=== PATIENT | female | born 1995 | race Caucasian/White ===

== ENCOUNTER → 2019-09-08 15:34 | Outpatient (CLI) | payer OTHER, SELFPAY ==
[2019-09-08 15:34] VITALS: BMI 32.5
[2019-09-08 17:57] LABS: Free T3 3.9 pg/mL (2.18-3.98); T4 Free Direct 1.69 ng/dL (0.76-1.46); Thyroid Stim Hormone (TSH) < 0.01 uIU/mL (0.358-3.74)
[2019-09-10 11:52] LABS: Thyroid Peroxidase AB 174 IU/mL (0-34)
== END ==
LOC: LAB 15:36
PROVIDERS: Referring Provider Internal Medicine Endocrinology, Diabetes & Metabolism; Visit Provider Internal Medicine Endocrinology, Diabetes & Metabolism
DX: O99.281 Endocrine, nutritional and metabolic diseases complicating pregnancy, first trimester (principal); E05.90 Thyrotoxicosis, unspecified without thyrotoxic crisis or storm; Z3A.00 Weeks of gestation of pregnancy not specified
CPT/HCPCS: 36415; 84439; 84443; 84481; 86376

== ENCOUNTER → 2019-09-29 15:36 | Outpatient (CLI) | payer OTHER, SELFPAY ==
[2019-09-08 15:34] VITALS: BMI 32.5
[2019-09-29 18:10] LABS: Free T3 3.4 pg/mL (2.18-3.98); T4 Free Direct 1.52 ng/dL (0.76-1.46); Thyroid Stim Hormone (TSH) < 0.01 uIU/mL (0.358-3.74)
== END ==
PROVIDERS: Referring Provider Internal Medicine Endocrinology, Diabetes & Metabolism; Visit Provider Internal Medicine Endocrinology, Diabetes & Metabolism
DX: O99.282 Endocrine, nutritional and metabolic diseases complicating pregnancy, second trimester (principal); E05.90 Thyrotoxicosis, unspecified without thyrotoxic crisis or storm; Z3A.00 Weeks of gestation of pregnancy not specified
CPT/HCPCS: 36415; 84439; 84443; 84481

== ENCOUNTER 2019-10-27 15:40 | Outpatient (RCR) | payer OTHER, SELFPAY ==
[2019-10-27 15:19] VITALS: BMI 31.5
[2019-10-27 16:59] LABS: Free T3 2.8 pg/mL (2.18-3.98); T4 Free Direct 1.22 ng/dL (0.76-1.46); Thyroid Stim Hormone (TSH) < 0.01 uIU/mL (0.358-3.74)
== END 2019-10-27 18:00 | disposition home or self-care (01) ==
LOC: LAB 15:40
PROVIDERS: Referring Provider Internal Medicine Endocrinology, Diabetes & Metabolism; Visit Provider Internal Medicine Endocrinology, Diabetes & Metabolism
DX: O99.282 Endocrine, nutritional and metabolic diseases complicating pregnancy, second trimester (principal); E05.90 Thyrotoxicosis, unspecified without thyrotoxic crisis or storm
CPT/HCPCS: 36415; 84439; 84443; 84481

== ENCOUNTER 2019-11-26 15:05 | Outpatient (RCR) | payer OTHER, SELFPAY ==
[2019-10-27 15:59] VITALS: BMI 32.5
[2019-11-26 17:01] LABS: Free T3 2.9 pg/mL (2.18-3.98); T4 Free Direct 1.14 ng/dL (0.76-1.46); Thyroid Stim Hormone (TSH) < 0.01 uIU/mL (0.358-3.74)
== END 2019-11-26 18:00 | disposition home or self-care (01) ==
LOC: LAB 15:05
PROVIDERS: Referring Provider Internal Medicine Endocrinology, Diabetes & Metabolism; Visit Provider Internal Medicine Endocrinology, Diabetes & Metabolism
DX: O99.282 Endocrine, nutritional and metabolic diseases complicating pregnancy, second trimester (principal); E05.90 Thyrotoxicosis, unspecified without thyrotoxic crisis or storm
CPT/HCPCS: 36415; 84439; 84443; 84481

== ENCOUNTER 2020-02-13 05:23 | Inpatient (IN) | payer OTHER, SELFPAY ==
[2019-12-22 15:13] VITALS: BMI 32.5
--- NOTE | 2020-02-04 16:15 | HP.PCM_ITS ---
History and Physical Date of Admission: 02/13/20 Genoveva Colmenares Physician Specialty: REGISTERED REPRESENTATIVE H&P Signed Encounter Date: 02/04/2020 Expand All Collapse All Hide copied text Cecily for details Jackelin Gomez is a 25 year old female who presents for PRE OP visit- scheduled Repeat c/s and Salpingectomy for TWINS at 37.6 weeks. Pt reports no pain, contraction, bleeding or leaking. Reports good FM. Pt report no CP, SOB, dizziness. ? PAST MEDICAL HISTORY PAST MEDICAL HISTORY Diagnosis Date ? ASCUS with positive high risk HPV cervical 10/2016 ? Hyperthyroidism affecting in second trimester 08/18/2019 ? NEGATIVE MEDICAL HISTORY ? PAST SURGICAL HISTORY PAST SURGICAL HISTORY Procedure Laterality Date ? ANESTH, SECTION ? ? ? DELIVERY ONLY ? 05/30/2017 ? NONE ? ? FAMILY HISTORY FAMILY HISTORY Problem Relation Age of Onset ? other (brittle bone disease) Brother ? SOCIAL HISTORY Social History ? Tobacco Use ? Smoking status: Never Smoker ? Smokeless tobacco: Never Used Substance Use Topics ? Alcohol use: No ? Drug use: No CURRENT MEDICATIONS Current Outpatient Medications Medication Sig ? aspirin, enteric coated (ADULT LOW DOSE ASPIRIN) 81 mg EC tablet Take 1 tablet by mouth once daily. ? metHIMazole (TAPAZOLE) 5 mg tablet Take 1 tablet by mouth once daily. ? PNV CMB#21/IRON/FOLIC ACID ( COMPLETE ORAL) Take by mouth. ? No current facility-administered medications for this visit. Allergies As of Date: 02/04/2020 (No Known Allergies) Fully Assessed 02/04/2020 ? REVIEW OF SYSTEMS Abdomen: no pain.. Expanded ROS: GENERAL: Negative for fever Allergies and current medication updated:Yes ? EXAM: BP 120/68 Wt 230 lb (104.3kg) LMP 05/24/2019 GENERAL: pleasant, female in no apparent distress HEENT: Normocephalic and atraumatic NECK: full range of motion DERMATOLOGY: Normal, without lesions, non-icteric and non-hirsute ABDOMEN: soft, non-tender and gravid NEURO: alert and oriented x3,exam grossly non-focal EXTREMITIES: normal ? ASSESSMENT AND PLAN: Encounter Diagnosis ? ? ICD-10-CM ? 1. Dichorionic diamniotic twin in first trimester O30.041 URINE OB DIP B/O 2. Hyperthyroidism affecting in second trimester O99.282 URINE OB DIP B/O ? E05.90 ? 3. 36 weeks gestation of Z3A.36 URINE OB DIP B/O 4. Pt has been counseled on risks/benefits and alternatives of surgery including but not limited to anesthesia, bleeding, infection, injury to pelvic structures including bowel, bladder, ureters and vessels. Pt wishes to proceed with surgery at this time. 5. Pre op instructions reviewed ? ? ? Genoveva Akhtar MD ?4:14 PM Routine Office Visit on 02/04/2020 Essential Procedure Criteria Procedure Essential: Yes Criteria Note: On 12/09/2019 the [facility] ([facility]) Public Order signed by [facility] Director Christine Denson M.D., regarding the Management of Non- Essential Surgeries and Procedures for the purpose of preserving Personal Protective Equipment (PPE) and critical hospital capacity and resources within [place] went into effect as of 12/10/2019 at 5:00PM. According to the [facility] Public Order: This action will remain in full force and effect until the State of Emergency declared by the Governor no longer exists or the Director of the [facility] rescinds or modifies this Order.. This [facility] order stated all non-essential or elective surgeries and procedures that utilize PPE should be delayed unless there is undue risk to the current or future health of a patient. After reviewing the aforementioned [facility] Public Order and the patients clinical case, I have determined that the scheduled procedure meets the criteria to go forward. Risk to Patient if Procedure Delayed: Risk of rapidly worsening to severe symptoms if delayed - twin gestation- term at 37.6 weeks gestation- delivery recommendation
[2020-02-13] VITALS (16 sets, daily range): BP systolic 99–125; BP diastolic 43–81; PULSE 86–109; RESP 12–97; TEMP 36.2–36.7; O2SAT 96–100; BMI 36.5
[2020-02-13] MEDS: Lactated Ringers 1,000 ML 999 ML IV (05:55)
[2020-02-13 06:03] LABS: Absolute Lymphocyte Count 1.65 X10^3/uL (0.83-4.51); Basophil# 0.03 X10^3/uL; Basophil% 0.3 % (0-1); Hematocrit 40.2 % (37-47); Hemoglobin 13.1 g/dL (12.0-15.0); Lymphocyte # 1.65 X10^3/ul (4.0); Lymphocyte % 18.8 % (19-41); Mean Corp Hgb Conc 32.6 g/dL (32-36); Mean Corpuscular Hgb 28.3 pg (27.0-32.0); Mean Corpuscular Volume 86.8 fL (81-99); Mean Platelet Vol. 9.7 fl (6.2-12.0); Monocyte# 0.87 X10^3/uL; Monocyte% 9.9 % (0-10); NRBC Flagged by Analyzer 0 % (0-5); Neutrophil # 6.03 X10^3/uL (2.7-7.7); Neutrophil % 68.8 % (47-70); Platelet Count 208 K/mm3 (150-450); RBC Distribution Width SD 37.7 fl (35.1-43.9); Red Blood Count 4.63 M/mm3 (4.2-5.4); White Blood Count 8.8 K/mm3 (4.4-11.0)
[2020-02-13] MEDS: Lactated Ringers 1,000 ML 150 ML IV (06:57)
[2020-02-13] MEDS: Sodium Citrate/Citric Acid 30 ML UDC PO (07:02)
--- NOTE | 2020-02-13 07:08 | PCM.OPRPT ---
Delivery Classification: Scheduled Final MAVERICK: 02/28/20 Final MAVERICK Source: US <20 weeks Gestational age: 37 Weeks and 6 Days business system consultant: Mihir Alfaro Type of Anesthesia:: Spinal Implants Used: none Date of Procedure: 02/13/20 Pre-Operative Diagnosis: Di/Di twin gestation, desires sterilization Post-Operative Diagnosis: same, live female infants Indications for : Repeat Elective , Desires elective sterilization, Multiple Gestation Description of Procedure: After informed consent was obtained the patient was taken to the operating room she was given spinal anesthesia. He was placed in the supine position. She was then prepped and draped in normal sterile fashion. Once spinal anesthesia was found to be adequate skin incision was made with a scalpel in a Pfannenstiel fashion. It was carried down to the underlying layer of the fascia. Fascia was then incised midline with scapel and extended laterally using curved stallings. 2 straight Geneva's were placed in the superior aspect of the fascial edge and the rectus muscles were dissected off shaprly. Attention was then turned to the inferior aspect where again the fascial edge was grasped with 2 straight Cisco clamps tented up and the rectus muscle dissected off sharply. At this time the rectus muscles were grasped in the midline using 2 Allis clamps and scalpel was used to separate the rectus muscles. Using blunt force the peritoneum was then entered. Metzenbaums were used to take down the rectus muscles inferiorly as well as the peritoneum. At this time the vesicouterine peritoneum was identified. Metzenbaum scissors were used to create a bladder flap and then taken down digitally. Uterine incision was made in a low transverse fashion with the scalpel and then entered bluntly. Gentle opposing traction was placed to extend the uterine incision. The membranes were ruptured amniotic fluid clear. Twin A- 's head was then brought to the uterine incision was delivered atraumatically followed by the rest infant's body. At this time delayed cord clamping was performed mouth nose were suctioned. Infant was then handed to the waiting nursery team. Twin B- unable to feel presenting part- interval version attempted to deliver breech- Membranes inadvertently ruptured, clear- was delivered in breech position buttocks brought to uterine incision and delivered atraumatically. The placentas were then removed with gentle traction. The uterus was removed from the intra-abdominal cavity is wrapped in a moist lap. He was cleared of all clots and debris using a moist lap. Ring clamps were placed on the uterine angles. #1 Vicryl suture was used in a running locked fashion for the first layer. Followed by second imbricating layer with #1 Vicryl. At this time then the uterus was placed back into abdominal cavity uterine incision was evaluated and noted to be of good hemostasis. Tubes and ovaries were evaluated they were normal. The tubes were grasped in an avascular area with the Ligasure used to seal and ligate along mesoalpinx on bilaterally to remove fallopian tubes. Great hemostasis was appreciated at this time the uterine incision was again evaluated good hemostasis was appreciated. The peritoneum was grasped with Kellys. Peritoneum was reapproximated using #2 Vicryl suture in a running fashion. Davonte placed over rectus. The fascia was then reapproximated using #1 Vicryl in a running fashion. Subcutaneous layer was evaluated and Bovie was used for any small oozing that was noted per #2-0 plain gut suture was then used to reapproximate the subcutaneous layer, davonte placed. 4-0 monocryl used to reapproximate the skin in a subcutaneous fashion. Dry sterile dressing was applied. Instrument lap needle count were correct ?2. Anticipated normal postoperative course for this patient. Amniotic Membrane Rupture Type: Artificial Amniotic Fluid Description: Clear Placenta Disposition: [facility] Drain: Zamorano to straight drain Fluids Replaced: 1000 Cord Entanglement: None Cord Vessel Description: 3 Vessels Esitmated Blood Loss (ml): 900 Gender: Female (1 minute): 9 - twin B 7, 9 (5 minute): 9 Delayed cord clamping: Yes Antibiotic Given: Ancef 2 grams IV x1 Pt instructed on risks of surgery: Bleeding, Anesthesia Risks, Infection, Permanency, Failure Rate of 1 to 2%, Injury to surrounding structure(s) including bowel and bladder, Availability of other non-permanent control options - Admit VTE Documentation VTE Present on Admission: Yes VTE Mechan Device Prophylaxis: SCD's VTE Pharm Prophylaxis ordered?: Yes
[2020-02-13] MEDS: Cefazolin 2 GM in 0.9% Normal Saline 100 ML IV (07:16)
--- NOTE | 2020-02-13 07:44 | PLAC_PTH ---
PATIENT: GENNY PARRA LOC: [facility] U#:[id number] AGE/SX: 25/F ROOM: [facility] RE02/13/[address]: Dr. Genoveva Akhtar, MDDOB: 1995 BED: 1 DIS: 02/15/2020 SPEC #: [id number] RECD: 02/13/20 09:36 STATUS: JORDYN ZACARIAS #: [id number] KRAIG: 02/13/20 07:[address]: Genoveva Akhtar DEPT: SURGICAL PATHOLOGY RECD BY: Savita Duff ENTERED: 02/13/20 10:11 SP TYPE: PLACENTA OTHR DR: Dr. Louis Griffin MD Tissues: A - Placenta, NOS B - Fallopian tube Procedures: Surgery Specimen Level II Surgery Specimen Level V HEADER OPERATION: Repeat section; tubal ligation PRE-OP DIAGNOSIS: Twins; sterilization TISSUE SUBMITTED: A - Placenta, B - Fallopian tubes, suture in left tube MICROSCOPIC DIAGNOSIS A. Dichorionic diamniotic twin placenta: 1 - Placenta (499 gm): Umbilical cord - trivascular with no inflammation. Peripheral membranes - no pathologic change. Placental disc - Jeanie-Boogie change and focal intervillous congestion. 2 - Placenta (518 gm): Umbilical cord - trivascular with no inflammation. Peripheral membranes - no pathologic change. Placental disc - Mild Jeanie-Boogie change, intervillous congestion and mildly increased intraparenchymal calcifications. B. Right and left fallopian tubes, bilateral salpingectomies: Complete segments of fallopian tube with no pathologic change. AM:jordy 02/17/20 MICROSCOPIC DESCRIPTION Slides are reviewed. GROSS DESCRIPTION A - SPECIMEN: TWIN PLACENTA / CLINICAL INFORMATION: A. Weight: A - 2.88 kg; B - 2.825 kg B. Gestational Age: 37 weeks C. Sex: A - Female, B - Female PLACENTA A1: (with clamp) PLACENTAL WEIGHT (POST FIXATION): 499 gm PLACENTAL DIMENSIONS: 19 x 17 x 2 cm PLACENTAL SHAPE: Usual ovoid PLACENTAL WEIGHT FOR GESTATIONAL AGE: Within 10-99th percentile MEMBRANES - Present A. Insertion: Marginal B. Site of rupture from edge: At edge of placental disc C. Color of membrane: Mccann-singh D. Abnormalities: None UMBILICAL CORD - Present A. Color: Mccann-singh B. Insertion: Eccentric C. Length: 20 cm D. Diameter: 1 cm E. Number of vessels: Three F. Abnormalities: None PLACENTA A2: PLACENTAL WEIGHT (POST FIXATION): 518 gm PLACENTAL DIMENSIONS: 20 x 17 x 3 cm PLACENTAL SHAPE: Usual ovoid PLACENTAL WEIGHT FOR GESTATIONAL AGE: Within 10-99th percentile MEMBRANES - Present A. Insertion: Marginal B. Site of rupture from edge: At edge of placental disc C. Color of membrane: Mccann-singh D. Abnormalities: None UMBILICAL CORD - Present A. Color: Mccann-singh B. Insertion: Eccentric C. Length: 20 cm D. Diameter: 1 cm E. Number of vessels: Three F. Abnormalities: None PLACENTAL DISC - Present A. Color of surface: Mccann-singh B. surface abnormalities: None C. Maternal cotyledons: Intact with minimal tears D. Attached retro placental clot: No clot E. Cut surface: Dark red and spongy F. Lesions: None G. Separate clot: Absent SECTIONS SUBMITTED: 11 cassettes 1 - Dividing membrane 2 - Peripheral membranes #1 3 - Umbical cord #1 4-6 - Placental disc #1 7 - Peripheral membranes #2 8 - Umbical cord #2 9-11 - Placental disc #2 B - Received in fixative is one container labeled with the patient's name and designated bilateral fallopian tubes, left with suture. The specimen consists of two fallopian tubes with an average length of 7 cm and has an average diameter of 1 cm. Both fallopian tubes have normal fimbriated ends. No mass lesions are identified. Casting Sorter sections are submitted in two cassettes as follows: 1 - right fallopian tube, 2 - left fallopian tube. / AM:jordy 02/13/20 TC:5 CPT: 63164 x2, 66863 x2
[2020-02-13] MEDS: Oxytocin 30 units/NS 500 ml 30 UNITS/500 ML IV.SOLN 167 UNITS IV (08:35)
[2020-02-13 09:39] LABS: Pathology Specimen OB SEE PATHOLOGY REPORT
[2020-02-13] MEDS: Ondansetron 4 MG/2 ML Vial IV (10:07)
[2020-02-13] MEDS: proCHLORPERazine 10 MG/2 ML Vial IV (11:30)
[2020-02-13] MEDS: Lactated Ringers 1,000 ML 100 ML IV (11:44)
[2020-02-13] MEDS: Ketorolac 30 MG/ML Syringe IV ×2 (14:31→19:52)
[2020-02-13] MEDS: Methimazole 5 MG Tablet 7.5 MG PO ×2 (19:51→19:52)
--- NOTE | 2020-02-13 21:30 | NURSING ---
Charted for AMADEO Prince. Report given that pt was assisted out of bed at 1645 per K AMADEO Mckoy
[2020-02-14 00:13] VITALS: BP 125/80; PULSE 93; RESP 18; TEMP 36.6; O2SAT 97
[2020-02-14] MEDS: Ketorolac 30 MG/ML Syringe IV ×4 (02:15→20:10)
[2020-02-14] MEDS: 0.9% Saline Lock 10 ML Syringe IV ×4 (02:16→20:10)
[2020-02-14] MEDS: Enoxaparin 40 MG/0.4 ML Syringe SC ×2 (02:49→20:10)
[2020-02-14 04:00] VITALS: BP 102/58; PULSE 76; RESP 18; TEMP 36.4; O2SAT 100
[2020-02-14 05:43] LABS: Hematocrit 35.7 % (37-47); Hemoglobin 11.3 g/dL (12.0-15.0); Mean Corp Hgb Conc 31.7 g/dL (32-36); Mean Corpuscular Hgb 27.8 pg (27.0-32.0); Mean Corpuscular Volume 87.7 fL (81-99); Mean Platelet Vol. 9.4 fl (6.2-12.0); Platelet Count 192 K/mm3 (150-450); Red Blood Count 4.07 M/mm3 (4.2-5.4); White Blood Count 12.7 K/mm3 (4.4-11.0)
[2020-02-14 08:38] VITALS: BP 108/70; PULSE 88; RESP 16; TEMP 36.8; O2SAT 98
--- NOTE | 2020-02-14 08:50 | PN.OBGYN_ITS ---
Subjective: Pain well controlled. Average lochia. No nausea vomiting. Ambulating and urinating without difficulty. - Physical Exam Vitals/I&O's: Vital Signs Temp Pulse Resp BP Pulse Ox 98.2 F 88 16 108/70 98 02/14/20 08:38 02/14/20 08:38 02/14/20 08:38 02/14/20 08:38 02/14/20 08:38 Oxygen Delivery Method Room Air Weight: 105.744 kg Body Mass Index (BMI) 36.5 Intake and Output for Last 24 Hours 02/12/20 02/13/20 02/14/20 23:59 23:59 23:59 Intake Total 5284.17 / 5284.17 Output Total 1350 / 1350 1000 / 1000 Balance 3934.17 / 3934.17 -1000 / -1000 General: Alert, Cooperative, No apparent distress Abdomen: Soft, Distended - Moderately, Tender - Appropriately, - - fundus is firm at approximately the umbilicus Extremities: Edema - 2+ Microbiology Past 72 Hours 02/13/20 05:45 Mucosa - Nasopharyngeal Coronavirus COVID-19 PCR - Final Laboratory Results 02/14/20 05:30: WBC 12.7 H, RBC 4.07 L, Hgb 11.3 L, Hct 35.7 L, MCV 87.7, MCH 27.8, MCHC 31.7 L, RDW Std Deviation 38.0, RDW Coeff of Hyun 12.0, Plt Count 192, MPV 9.4 Current Medications Acetaminophen (Tylenol) 1,000 mg PO Q8H PRN PRN Reason: Pain Score 1-3/10 Bisacodyl (Dulcolax) 10 mg RECTAL UD PRN PRN Reason: If no BM Diphenhydramine HCl (Benadryl) 25 mg PO Q6H PRN PRN PRN Reason: ITCHING Stop: 02/14/20 11:33 Enoxaparin Sodium (Lovenox) 40 mg SC DAILY@1900 [facility] Last Admin: 02/14/20 02:49 Dose: 40 mg Documented by: Hydrocortisone (Hytone) 1 applic TOPICAL TID PRN PRN; Protocol PRN Reason: Discomfort Lactated Ringer's () 1,000 mls @ 100 mls/hr IV .Q10H [facility] Last Admin: 02/13/20 22:26 Dose: Not Given Documented by: Naloxone HCl 4 mg/ Dextrose 504 mls @ 0 mls/hr IV .Q0M PRN; Protocol PRN Reason: Respiratory depression Ibuprofen (Motrin) 600 mg PO Q6H PRN PRN PRN Reason: Pain Score 1-3/10 Ketorolac Tromethamine (Toradol (Bkc)) 30 mg IV Q6H [facility] Stop: 02/15/20 08:01 Last Admin: 02/14/20 08:32 Dose: 30 mg Documented by: Methimazole (Tapazole) 5 mg PO SuTuWeThSa@1999 DONG Methimazole (Tapazole) 7.5 mg PO MoFr@1999 [facility] Last Admin: 02/13/20 19:52 Dose: 7.5 mg Documented by: Methylergonovine Maleate (Methergine) 0.2 mg IM X1 PRN PRN Reason: Uterine Atony Nalbuphine HCl (Nubain) 5 mg IV Q3H PRN PRN PRN Reason: ITCHING Stop: 02/14/20 11:33 Naloxone HCl (Narcan) 0.02 mg IV Q1M PRN PRN Reason: RR <10 and pt unresponsive Ondansetron HCl (Zofran) 4 mg IV Q4H PRN PRN PRN Reason: Nausea Last Admin: 02/13/20 10:07 Dose: 4 mg Documented by: Oxycodone HCl (Oxyir) 5 - 10 mg PO Q4H PRN PRN PRN Reason: Pain Score 4-10/10 Prochlorperazine Edisylate (Compazine Iv) 10 mg IV Q6H PRN PRN PRN Reason: NAUSEA Last Admin: 02/13/20 11:30 Dose: 10 mg Documented by: Senna/Docusate Sodium (Senokot-S, Yesi-Colace) 0 tablet PO DAILY PRN PRN Reason: Constipation Simethicone (Mylicon) 80 mg PO PCHS PRN PRN Reason: Indigestion/stomach pain Sodium Chloride () 5 - 15 ml IV UD PRN PRN Reason: SALINE FLUSH Last Admin: 02/14/20 08:32 Dose: 10 ml Documented by: Medical Necessity - Tobacco Use Smoking Status: Never smoker Assessment/Plan All Active Problems (Last Reviewed 02/03/20 @ 15:[address] Stanislaw Nunes MD) Hyperthyroidism affecting in first trimester (Acute) Postoperative day #1 As per section for twins. Patient is doing well. Neonates are breast-feeding and doing well routine care likely d/c home tomorrow if ok w/ peds.
[2020-02-14 13:18] VITALS: BP 108/66; PULSE 93; RESP 16; TEMP 36.8; O2SAT 96
[2020-02-14] MEDS: Acetaminophen 500 MG Tablet 1000 MG PO (17:56)
[2020-02-14] MEDS: Senna/Docusate Sodium 1 Tablet PO (17:57)
[2020-02-14 20:05] VITALS: BP 103/64; PULSE 81; RESP 16; TEMP 36.4
[2020-02-14] MEDS: Methimazole 5 MG Tablet PO (20:15)
[2020-02-15 01:58] VITALS: BP 110/73; PULSE 78; RESP 14; TEMP 36.5
[2020-02-15] MEDS: 0.9% Saline Lock 10 ML Syringe IV ×2 (01:59→07:57)
[2020-02-15] MEDS: Ketorolac 30 MG/ML Syringe IV ×2 (01:59→07:57)
[2020-02-15 08:06] VITALS: BP 113/66; PULSE 79; RESP 16; TEMP 36.7; O2SAT 97
--- NOTE | 2020-02-15 08:10 | PN.OBGYN_ITS ---
Subjective: Pain is well controlled. Average lochia. Ambulating and tolerating regular diet. Patient has had a bowel movement. Urinating without difficulty. Would like to go home today. Trouble with the breast-feeding. - Physical Exam Vitals/I&O's: Vital Signs Temp Pulse Resp BP Pulse Ox 98.1 F 79 16 113/66 97 02/15/20 08:06 02/15/20 08:06 02/15/20 08:06 02/15/20 08:06 02/15/20 08:06 Oxygen Delivery Method Room Air Weight: 105.744 kg Body Mass Index (BMI) 36.5 Intake and Output for Last 24 Hours 02/13/20 02/14/20 02/15/20 23:59 23:59 23:59 Intake Total 5284.17 / 5284.17 Output Total 1350 / 1350 1000 / 1000 Balance 3934.17 / 3934.17 -1000 / -1000 General: Alert, Cooperative, No apparent distress Abdomen: Soft, Distended - Currently, softly, - - Fundus is firm, below umbilicus Extremities: Edema - 2+ Skin: Incision - Bandages clean dry and intact Microbiology Past 72 Hours 02/13/20 05:45 Mucosa - Nasopharyngeal Coronavirus COVID-19 PCR - Final Current Medications Acetaminophen (Tylenol) 1,000 mg PO Q8H PRN PRN Reason: Pain Score 1-3/10 Last Admin: 02/14/20 17:56 Dose: 1,000 mg Documented by: Bisacodyl (Dulcolax) 10 mg RECTAL UD PRN PRN Reason: If no BM Enoxaparin Sodium (Lovenox) 40 mg SC DAILY@190 [facility] Last Admin: 02/14/20 20:10 Dose: 40 mg Documented by: Hydrocortisone (Hytone) 1 applic TOPICAL TID PRN PRN; Protocol PRN Reason: Discomfort Naloxone HCl 4 mg/ Dextrose 504 mls @ 0 mls/hr IV .Q0M PRN; Protocol PRN Reason: Respiratory depression Ibuprofen (Motrin) 600 mg PO Q6H PRN PRN PRN Reason: Pain Score 1-3/10 Methimazole (Tapazole) 5 mg PO SuTuWeThSa@2000 [facility] Last Admin: 02/14/20 20:15 Dose: 5 mg Documented by: Methimazole (Tapazole) 7.5 mg PO MoFr@2000 [facility] Last Admin: 02/13/20 19:52 Dose: 7.5 mg Documented by: Methylergonovine Maleate (Methergine) 0.2 mg IM X1 PRN PRN Reason: Uterine Atony Naloxone HCl (Narcan) 0.02 mg IV Q1M PRN PRN Reason: RR <10 and pt unresponsive Ondansetron HCl (Zofran) 4 mg IV Q4H PRN PRN PRN Reason: Nausea Last Admin: 02/13/20 10:07 Dose: 4 mg Documented by: Oxycodone HCl (Oxyir) 5 - 10 mg PO Q4H PRN PRN PRN Reason: Pain Score 4-10/10 Prochlorperazine Edisylate (Compazine Iv) 10 mg IV Q6H PRN PRN PRN Reason: NAUSEA Last Admin: 02/13/20 11:30 Dose: 10 mg Documented by: Senna/Docusate Sodium (Senokot-S, Yesi-Colace) 0 tablet PO DAILY PRN PRN Reason: Constipation Last Admin: 02/14/20 17:57 Dose: 1 tablet Documented by: Simethicone (Mylicon) 80 mg PO PCHS PRN PRN Reason: Indigestion/stomach pain Sodium Chloride () 5 - 15 ml IV UD PRN PRN Reason: SALINE FLUSH Last Admin: 02/15/20 07:57 Dose: 10 ml Documented by: Medical Necessity - Tobacco Use Smoking Status: Never smoker Assessment/Plan All Active Problems (Last Reviewed 10/27/19 @ 15:[address] Stanislaw Nunes MD) Hyperthyroidism affecting in first trimester (Acute) From day #2 status post section Being well. Discharged home with routine instructions. Neonates are doing well and breast-feeding.
--- NOTE | 2020-02-15 08:14 | DCINST_ITS ---
Discharge Diet: No Restrictions Discharge Activity: Return to Normal Activity, May not drive while taking narcotic pain medications., May Shower May resume sexual activity in: 4-6 weeks Additional Activity Instructions:: Nothing in the vagina for 4-6 weeks. You may return to work/school in 6 weeks. Call your doctor if your incision/area has: Continuous Slow Oozing, Sudden Increased Bleeding, Increased Pain/ Swelling, Increased Redness, Foul Smelling Discharge Additional Instructions: If you experience any of the following, contact your healthcare provider. * Bleeding that soaks a pad every hour for 2 hours * Fever 100.4 or higher * Unrelieved incision or abdominal pain * Swelling, redness, discharge or bleeding from your incision or episiotomy site * Your incision begins to separate * Problems urinating (including inability to urinate or burning while urinating). * Visual changes * Severe headache * Flu-like symptoms * Pain or redness in one of both of your breasts * Pain, warmth, tenderness or swelling in your legs, especially the calf area * Frequent nausea and vomiting * Symptoms of depression or anxiety If you experience any of the following, call 911 or go to the nearest Emergency Room. * Chest pain * Problems breathing * Seizure activity * Partial or complete paralysis of a body part, slurred speech, weakness or drooping of the face, or a sudden inability to walk or hold your balance Allergies/Adverse Reactions: Allergies No Known Allergies Allergy (Verified 02/13/20 05:30) Medications to take at Discharge aspirin 81 mg tablet,delayed release 81 mg PO DAILY 08/14/19 docosahexaenoic acid 200 mg capsule 200 mg PO DAILY cap 08/14/19 Methimazole See Rx Instructions PO DAILY 02/13/20 Ibuprofen [Motrin] 600 mg PO Q6H PRN #60 tab 02/15/20 Oxycodone [Oxyir] 5 mg PO Q6H PRN PRN 7 Days #12 tablet 02/15/20 The following prescriptions were given: Ibuprofen [Motrin] 600 mg PO Q6H PRN #60 tab PRN Reason: Pain Transmission Status: Pending to [address] Oxycodone [Oxyir] 5 mg PO Q6H PRN PRN 7 Days #12 tablet PRN Reason: severe pain Transmission Status: Received by [address] Please Follow Up With: France Galo MD - [phone] When: Call to make an appointment with your doctor's office in 1-2 and 6 weeks or as needed Primary Care Physician: Louis Griffin MD [Primary Care Provider] - Test Results: Test results from this visit will be discussed in further detail at your follow- up appointment, if applicable.
--- NOTE | 2020-02-15 08:16 | DS.PCM_ITS ---
Discharge Date and Diagnosis Date of Admission: 02/13/20 Date of Discharge: 02/15/20 Hospital Course and Treatment Operations: - - repeat lTCS with bilateral salpingectomy Procedures: None Summary of Care Provided: The patient is a 25-year-old multigravida female admitted for repeat section. She had dichorionic diamniotic twins. She also desired sterilization. She underwent a repeat low transverse section with bilateral salpingectomy on 02/13/2020 without difficulty. By postoperative day #2 she was ambulating, urinating tolerating regular diet without difficulty. She was discharged home with routine instructions and prescriptions. [] - Physical Exam Vitals/I&O's: Vital Signs Temp Pulse Resp BP Pulse Ox 98.1 F 79 16 113/66 97 02/15/20 08:06 02/15/20 08:06 02/15/20 08:06 02/15/20 08:06 02/15/20 08:06 Oxygen Delivery Method Room Air Weight: 105.744 kg Body Mass Index (BMI) 36.5 Intake and Output for Last 24 Hours 02/13/20 02/14/20 02/15/20 23:59 23:59 23:59 Intake Total 5284.17 / 5284.17 Output Total 1350 / 1350 1000 / 1000 Balance 3934.17 / 3934.17 -1000 / -1000 Microbiology Past 72 Hours 02/13/20 05:45 Mucosa - Nasopharyngeal Coronavirus COVID-19 PCR - Final Current Medications Acetaminophen (Tylenol) 1,000 mg PO Q8H PRN PRN Reason: Pain Score 1-3/10 Last Admin: 02/14/20 17:56 Dose: 1,000 mg Documented by: Bisacodyl (Dulcolax) 10 mg RECTAL UD PRN PRN Reason: If no BM Enoxaparin Sodium (Lovenox) 40 mg SC DAILY@1900 [facility] Last Admin: 02/14/20 20:10 Dose: 40 mg Documented by: Hydrocortisone (Hytone) 1 applic TOPICAL TID PRN PRN; Protocol PRN Reason: Discomfort Naloxone HCl 4 mg/ Dextrose 504 mls @ 0 mls/hr IV .Q0M PRN; Protocol PRN Reason: Respiratory depression Ibuprofen (Motrin) 600 mg PO Q6H PRN PRN PRN Reason: Pain Score 1-3/10 Methimazole (Tapazole) 5 mg PO SuTuWeThSa@1999 [facility] Last Admin: 02/14/20 20:15 Dose: 5 mg Documented by: Methimazole (Tapazole) 7.5 mg PO MoFr@1999 [facility] Last Admin: 02/13/20 19:52 Dose: 7.5 mg Documented by: Methylergonovine Maleate (Methergine) 0.2 mg IM X1 PRN PRN Reason: Uterine Atony Naloxone HCl (Narcan) 0.02 mg IV Q1M PRN PRN Reason: RR <10 and pt unresponsive Ondansetron HCl (Zofran) 4 mg IV Q4H PRN PRN PRN Reason: Nausea Last Admin: 02/13/20 10:07 Dose: 4 mg Documented by: Oxycodone HCl (Oxyir) 5 - 10 mg PO Q4H PRN PRN PRN Reason: Pain Score 4-10/10 Prochlorperazine Edisylate (Compazine Iv) 10 mg IV Q6H PRN PRN PRN Reason: NAUSEA Last Admin: 02/13/20 11:30 Dose: 10 mg Documented by: Senna/Docusate Sodium (Senokot-S, Yesi-Colace) 0 tablet PO DAILY PRN PRN Reason: Constipation Last Admin: 02/14/20 17:57 Dose: 1 tablet Documented by: Simethicone (Mylicon) 80 mg PO PCHS PRN PRN Reason: Indigestion/stomach pain Sodium Chloride () 5 - 15 ml IV UD PRN PRN Reason: SALINE FLUSH Last Admin: 02/15/20 07:57 Dose: 10 ml Documented by: Discharge Diet: No Restrictions Discharge Activity: Return to Normal Activity, May not drive while taking narcotic pain medications., May Shower May resume sexual activity in: 4-6 weeks Additional Activity Instructions:: Nothing in the vagina for 4-6 weeks. You may return to work/school in 6 weeks. Call your doctor if your incision/area has: Continuous Slow Oozing, Sudden Increased Bleeding, Increased Pain/ Swelling, Increased Redness, Foul Smelling Discharge Home Medications: Medications to take at Discharge aspirin 81 mg tablet,delayed release 81 mg PO DAILY 08/14/19 docosahexaenoic acid 200 mg capsule 200 mg PO DAILY cap 08/14/19 Methimazole See Rx Instructions PO DAILY 02/13/20 Ibuprofen [Motrin] 600 mg PO Q6H PRN #60 tab 02/15/20 Oxycodone [Oxyir] 5 mg PO Q6H PRN PRN 7 Days #12 tablet 02/15/20 Following Prescrptions Were Given to Patient: Ibuprofen [Motrin] 600 mg PO Q6H PRN #60 tab PRN Reason: Pain Transmission Status: Pending to [facility] [address] Oxycodone [Oxyir] 5 mg PO Q6H PRN PRN 7 Days #12 tablet PRN Reason: severe pain Transmission Status: Received by [facility] [address] Primary Care Physician: Louis Griffin MD [Primary Care Provider] - Please Follow Up With: France Galo MD - [phone] Medical Necessity - Tobacco Use Smoking Status: Never smoker Meaningful Use Info Meaningful Use Diagnoses (Choose all that apply): None applicable
[2020-02-18 12:35] LABS: Pathology Specimen OB SEE PATHOLOGY REPORT
== END 2020-02-15 10:00 | disposition home or self-care (01) | DRG 785 ==
PROVIDERS: Admitting Provider Obstetrics & Gynecology; Visit Provider Obstetrics & Gynecology
PROC: 10D00Z1 Extraction of Products of Conception, Low, Open Approach (ICD-10-PCS; CPT 59514; principal; 2020-02-13 07:15)
DX: O34.211 Maternal care for low transverse scar from previous cesarean delivery (principal); O30.043 Twin pregnancy, dichorionic/diamniotic, third trimester; Z3A.37 37 weeks gestation of pregnancy; Z37.2 Twins, both liveborn; Z30.2 Encounter for sterilization; O99.284 Endocrine, nutritional and metabolic diseases complicating childbirth; E05.90 Thyrotoxicosis, unspecified without thyrotoxic crisis or storm; O32.1XX2 Maternal care for breech presentation, fetus 2
CPT/HCPCS: 85025; 85027; 86850; 86900; 86901; 87635; 88302; 88307; 99218; G2023; J7120; A4216; G0378; J2405; U0004

== ENCOUNTER → 2020-08-27 15:56 | Outpatient (CLI) | payer OTHER, SELFPAY ==
[2020-08-27 15:34] VITALS: BMI 25.8
[2020-08-27 17:10] LABS: Thyroid Stim Hormone (TSH) < 0.01 uIU/mL (0.358-3.74)
[2020-08-27 17:19] LABS: T4 Free Direct > 8.00 ng/dL (0.76-1.46)
== END ==
PROVIDERS: Referring Provider Internal Medicine Endocrinology, Diabetes & Metabolism; Visit Provider Internal Medicine Endocrinology, Diabetes & Metabolism
DX: E05.00 Thyrotoxicosis with diffuse goiter without thyrotoxic crisis or storm (principal)
CPT/HCPCS: 36415; 84439; 84443

== ENCOUNTER → 2020-10-05 15:20 | Outpatient (CLI) | payer OTHER, SELFPAY ==
[2020-08-27 15:34] VITALS: BMI 25.8
[2020-10-05 17:20] LABS: Free T3 9.1 pg/mL (2.18-3.98)
[2020-10-05 17:25] LABS: T4 Free Direct 2.27 ng/dL (0.76-1.46); Thyroid Stim Hormone (TSH) < 0.01 uIU/mL (0.358-3.74)
== END ==
LOC: BIMLAB 15:22
PROVIDERS: Referring Provider Internal Medicine Endocrinology, Diabetes & Metabolism; Visit Provider Internal Medicine Endocrinology, Diabetes & Metabolism
DX: E05.00 Thyrotoxicosis with diffuse goiter without thyrotoxic crisis or storm (principal)
CPT/HCPCS: 36415; 84439; 84443; 84481

== ENCOUNTER → 2020-11-05 14:57 | Outpatient (CLI) | payer OTHER, SELFPAY ==
[2020-08-27 15:34] VITALS: BMI 25.8
[2020-11-05 18:02] LABS: Free T3 6.1 pg/mL (2.18-3.98); Thyroid Stim Hormone (TSH) < 0.01 uIU/mL (0.358-3.74)
== END ==
LOC: BIMLAB 14:59
PROVIDERS: Referring Provider Internal Medicine Endocrinology, Diabetes & Metabolism; Visit Provider Internal Medicine Endocrinology, Diabetes & Metabolism
DX: E05.00 Thyrotoxicosis with diffuse goiter without thyrotoxic crisis or storm (principal)
CPT/HCPCS: 36415; 84439; 84443; 84481

== ENCOUNTER → 2020-12-27 15:36 | Outpatient (CLI) | payer OTHER, SELFPAY ==
[2020-12-27 15:15] VITALS: BMI 27.7
[2020-12-27 17:17] LABS: Free T3 6.2 pg/mL (2.18-3.98); Thyroid Stim Hormone (TSH) < 0.01 uIU/mL (0.358-3.74)
== END ==
LOC: BIMLAB 15:37
PROVIDERS: Referring Provider Internal Medicine Endocrinology, Diabetes & Metabolism; Visit Provider Internal Medicine Endocrinology, Diabetes & Metabolism
DX: E05.00 Thyrotoxicosis with diffuse goiter without thyrotoxic crisis or storm (principal)
CPT/HCPCS: 36415; 84439; 84443; 84481

== ENCOUNTER → 2021-06-17 10:43 | Outpatient (CLI) | payer OTHER, SELFPAY ==
[2021-06-17 12:41] LABS: Free T3 2.8 pg/mL (2.18-3.98); T4 Free Direct 0.83 ng/dL (0.76-1.46); Thyroid Stim Hormone (TSH) 0.14 uIU/mL (0.358-3.74)
== END ==
LOC: BIMLAB 10:44
PROVIDERS: Referring Provider Internal Medicine Endocrinology, Diabetes & Metabolism; Visit Provider Internal Medicine Endocrinology, Diabetes & Metabolism
DX: E05.00 Thyrotoxicosis with diffuse goiter without thyrotoxic crisis or storm (principal)
CPT/HCPCS: 36415; 84439; 84443; 84481

== ENCOUNTER 2022-06-13 17:51 | Emergency (ER) | payer OTHER, BC, SELFPAY ==
[2022-06-13 17:55] VITALS: BP 128/71; PULSE 101; RESP 16; TEMP 36.3; O2SAT 100; BMI 31.9
--- NOTE | 2022-06-13 21:01 | EX.ED.UPPERE ---
HPI History of Present Illness HPI Narrative: Patient presents with laceration to her right index finger that occurred today. Patient states she cut it on a green meat grader. Patient is unsure of her last tetanus. Patient denies any paresthesias or weakness. Patient describes her pain as dull. Patient states it is worse when she tried to clean it. Patient states the bleeding stopped after few minutes of pressure. Patient denies any other injuries. Chief Complaint: Laceration Informant: patient Occured/Mechanism Comment: Cut on a green meat grader Onset/Context/Timing Onset: Today Context: Sudden Onset Timing: Continuous Quality of Pain: Dull Location: Right index finger Worsened by: Cleaning Relieved by: Nothing Associated Symptoms Associated Symptoms: Negative for Parasthesia, Weakness or Loss of Funtion Narrative Tetanus Immunization: Unknown [facility] Medical History (Updated 06/13/22 @ 21:[address] Josh Mai DO) Hyperthyroidism affecting in first trimester Home Medications methimazole 10 mg tablet 40 mg PO DAILY #120 tabs 08/19/21 [Rx Last Taken Unknown] Allergy/AdvReac Type Severity Reaction Status Date / Time No Known Allergies Allergy Verified 06/13/22 17:53 Family History Mother Thyroid disorder Sister Asthma Brother No problems noted. Grandmother Diabetes CVA (cerebral vascular accident) Grandmother Cancer Surgical History H/O tubal ligation History of Social History Smoking Status: Never smoker alcohol intake: never what type of physical activity do you participate in: walking frequency: 5-6 times per week duration: > 90 minutes/day ROS ROS ED Constitutional Constitutional ED: Denies chills or fever(s) Eyes Eyes: Denies blurry vision or change in vision ENT ENT ED: Denies rhinorrhea or sore throat Cardiovascular Cardiovascular: Denies chest pain or palpitations Respiratory/Chest Respiratory/Chest: Denies cough or dyspnea Gastrointestinal Gastrointestinal: Denies nausea or vomiting Genitourinary Genitourinary ED: Denies dysuria or hematuria Musculoskeletal Musculoskeletal: Denies back pain or neck pain Integumentary Denies abscess or rash Neurologic Neurologic: Denies headache(s) or weakness Allergic/Immunologic Allergic/Immunologic ED: Denies mouth swelling or urticaria EXAM Physical Exam Const Vital Signs: 06/13/22 17:55 Temperature 97.4 F L Temperature Source Temporal Pulse Rate 101 H Respiratory Rate 16 Blood Pressure 128/71 H Blood Pressure Mean 90 Pulse Ox 100 Oxygen Delivery Method Room Air Positive well nourished and well developed General Appearance ED: well developed and NAD HEENT Reports moist mucous membranes Neck full ROM Extremity Extremity Narrative: There is a 2.5 cm partial-thickness laceration over the dorsal aspect of the right index finger over the DIP joint. There is minimal gapping of the wound margins. There are no foreign bodies noted. There is no bleeding noted. There is no erythema or warmth noted. Strength is 5/5 in flexion extension of the MP, PIP, and DIP joints. Sensation was intact to light touch in all digits. Capillary refill is less than 2 seconds in all digits. General Extremety ED: Negative for edema General Extremity: Negative for edema Neuro oriented x3, CN's II-XII intact bilaterally, moves all extremities, no focal motor deficits and no sensory deficits noted Sensorium / Orientation: alert Motor Exam: strength 5/5 throughout Psych mental status grossly normal Skin Trauma: laceration linear and superficial MDM MDM MDM Narrative Medical decision making narrative: Since the laceration crosses the DIP joint, I discussed options with the patient for closure of the wound including sutures and Dermabond. Patient requested that the wound be closed with Dermabond. I advised her that if the laceration was closed with Dermabond, she would need a splint to keep her from bending the DIP joint. Patient is agreeable with this. Patient states she will wear the splint. The wound was cleaned and irrigated with copious amounts of normal saline. The wound was closed with Dermabond skin adhesive. Patient tolerated the procedure well. An AlumaFoam splint was applied. Patient was given a tetanus booster. Patient was instructed to follow-up with her primary care physician or the [facility] in 5 to 7 days. Patient understood and was agreeable with the plan. All questions were answered. Procedures Lacerations Right index finger: Length: 2.5 cm Depth: Skin Shape: Linear Prep: Sterile Conditions and Chlorhexadine Laceration repair: Dermabond and Wound explored Discharge Plan Triage Chief Complaint: Laceration ED Provider: Josh Mai Dx/Rx/DC Orders Clinical Impression: Laceration of right index finger, Obesity (BMI 30.0-34.9) Instructions: ED Laceration, Extremity: Skin Glue Prescriptions: No Action methimazole 10 mg tablet 40 mg PO DAILY Qty: 120 2RF Primary Care Provider: Louis Hernandez Referrals: Louis Hernandez MD [Primary Care Provider] - 5-7 Days Disposition Disposition: Home, Self Care
[2022-06-13] MEDS: Diphth,Pertuss(Acell),Tet Vac 0.5 ML Vial IM (21:20)
[2022-06-13 21:23] VITALS: BP 124/74; PULSE 74; RESP 14; O2SAT 99
== END 2022-06-13 21:25 | disposition home or self-care (01) ==
PROVIDERS: Emergency Provider Emergency Medicine; PCP Family Medicine; Visit Provider Emergency Medicine
DX: S61.210A Laceration without foreign body of right index finger without damage to nail, initial encounter (principal); E66.9 Obesity, unspecified; W26.8XXA Contact with other sharp object(s), not elsewhere classified, initial encounter; Z68.31 Body mass index [BMI] 31.0-31.9, adult; Z23 Encounter for immunization
CPT/HCPCS: 12001; 90471; 90715; 99283